=== PATIENT | male | born 1950 | race Caucasian/White ===

== ENCOUNTER 2023-07-08 13:39 | Inpatient (IN) | payer OTHER ==
[~2023-07-08] VITALS: Ht 175.3 cm; Wt 103.0 kg
[2023-07-08] MEDS: METOPROLOL TARTRATE 25 MG TAB PO SCH (00:19)
[2023-07-08 14:17] LABS: Basophils # (auto) 0 10 ^3/uL (0-0.2); Basophils % (auto) 0.5 % (0.0-2.0); Eosinophils # (auto) 0.2 10 ^3/uL (0-0.8); Hemoglobin 16.6 g/dL (13.5-17.5); Lymphocytes # (auto) 2.3 10 ^3/uL (0.4-5.4); Lymphocytes % (auto) 35.5 % (10.0-50.0); Mean Corpuscular Hemoglobin 32.8 pg (28.0-32.0); Mean Corpuscular Volume 96.7 fL (80.0-100.0); Monocytes # (auto) 0.4 10 ^3/uL (0-1.3); Monocytes % (auto) 6.6 % (0.0-12.0); Neutrophils # (auto) 3.6 10 ^3/uL (1.6-8.6); Neutrophils % (auto) 54.4 % (37.0-80.0); Nucleated Red Blood Cells % 0.1 %; Red Blood Cells 5.07 10^6/uL (4.5-5.90); Red Cell Distribution Width 13.8 % (11.8-14.3); White Blood Cell 6.6 10^3/uL (4.4-10.8)
[2023-07-08] MEDS: METOPROLOL TARTRATE 1MG/1ML-5ML VIAL IV SCH (14:35)
[2023-07-08 14:37] LABS: Alanine Aminotransferase 31 U/L (7-40); Alkaline Phosphatase 73 U/L (46-116); Calcium 10.3 mg/dL (8.5-10.1); Carbon Dioxide 30 mmol/L (20-30); Chloride 105 mmol/L (98-107)
[2023-07-08 14:38] LABS: Albumin 4.7 g/dL (3.2-4.8); Anion Gap 6 (5-15); Aspartate Aminotransferase 25 U/L (13-40); BUN/Creatinine Ratio 9.6 (10.0-20.0); Bilirubin, Total 1.1 mg/dL (0.2-1.0); Blood Urea Nitrogen 10 mg/dL (9-23); Glucose 131 mg/dL (74-106); Potassium 3.9 mmol/L (3.5-5.1); Sodium 141 mmol/L (136-145); Total Protein 7.5 g/dL (5.7-8.2)
[2023-07-08] MEDS: METOPROLOL TARTRATE 1MG/1ML-5ML VIAL IV ONE (14:56)
[2023-07-08] MEDS: AZITHROMYCIN 500MG/ 250ML 250 ML IV ONE (16:30)
[2023-07-08] MEDS ORDERED: MORPHINE SULFATE 4 MG/ML SYR/VIAL IV PRN (17:15)
[2023-07-08] MEDS ORDERED: ONDANSETRON HCL 4 MG/2 ML VIAL IV PRN (17:15)
[2023-07-08] MEDS ORDERED: NITROGLYCERIN 0.4 MG SL TAB SL PRN (17:15)
[2023-07-08] MEDS ORDERED: ACETAMINOPHEN 325 MG TAB PO PRN (17:15)
[2023-07-08 17:47] LABS: Urine Bacteria NONE SEEN /hpf (None Seen); Urine Blood Negative /uL (Negative); Urine Clarity Clear (Clear); Urine Color Colorless (Yellow); Urine Protein, UAD Negative (Negative); Urine Specific Gravity 1.008 (1.001-1.035); Urine Urobilinogen Normal (Negative); Urine WBC <1 /hpf (0 - 3); Urine pH 5.5 (5.0-8.0)
[2023-07-08 17:51] LABS: INR 1.25 (0.9-1.15); Prothrombin Time 12.9 sec (9.3-11.8)
[2023-07-08 17:58] LABS: Triglycerides 221 mg/dL (< 150)
[2023-07-08 17:59] LABS: LDL Cholesterol 105 mg/dL (< 100)
[2023-07-08 18:00] LABS: Cholesterol 152 mg/dL (< 200); HDL Cholesterol 37 mg/dL (40-59)
[2023-07-08 18:59] VITALS: PULSE 158; RESP 20; O2SAT 96
[2023-07-08] MEDS: AMIODARONE BOLUS KIT 100 ML IV ONE (19:37)
[2023-07-08 20:00] VITALS: PULSE 103; RESP 19; O2SAT 93
[2023-07-08] MEDS: AMIODARONE 450mg/250ml AE 250 ML IV SCH (21:10)
[2023-07-09] MEDS: ATORVASTATIN 20 MG TAB PO SCH (00:19)
[2023-07-09] MEDS: ENOXAPARIN SOD 100 MG/1 ML SYRINGE SC SCH (00:19)
[2023-07-09] MEDS: AMIODARONE 450mg/250ml AE 250 ML IV SCH (04:31)
[2023-07-09 05:17] LABS: Basophils # (auto) 0.1 10 ^3/uL (0-0.2); Basophils % (auto) 0.9 % (0.0-2.0); Eosinophils # (auto) 0.2 10 ^3/uL (0-0.8); Eosinophils % (auto) 3.2 % (0.0-7.0); Hematocrit 45.7 % (41.0-53.0); Hemoglobin 15.1 g/dL (13.5-17.5); Lymphocytes # (auto) 2.7 10 ^3/uL (0.4-5.4); Lymphocytes % (auto) 36.2 % (10.0-50.0); Mean Corpuscular Hemoglobin 32.3 pg (28.0-32.0); Mean Corpuscular Hgb Conc. 33.1 g/dL (32.0-36.0); Mean Corpuscular Volume 97.7 fL (80.0-100.0); Monocytes # (auto) 0.8 10 ^3/uL (0-1.3); Monocytes % (auto) 11.2 % (0.0-12.0); Neutrophils # (auto) 3.6 10 ^3/uL (1.6-8.6); Neutrophils % (auto) 48.5 % (37.0-80.0); Nucleated Red Blood Cells % 0.3 %; Red Blood Cells 4.67 10^6/uL (4.5-5.90); Red Cell Distribution Width 13.6 % (11.8-14.3); White Blood Cell 7.5 10^3/uL (4.4-10.8)
[2023-07-09 05:37] LABS: Alanine Aminotransferase 25 U/L (7-40); Alkaline Phosphatase 59 U/L (46-116); Anion Gap 8 (5-15); BUN/Creatinine Ratio 10.7 (10.0-20.0); Blood Urea Nitrogen 9 mg/dL (9-23); Calcium 9.1 mg/dL (8.7-10.4); Carbon Dioxide 23 mmol/L (20-30); Chloride 110 mmol/L (98-107); Glucose 95 mg/dL (74-106); Sodium 141 mmol/L (136-145)
[2023-07-09 05:38] LABS: Albumin 3.8 g/dL (3.2-4.8); Aspartate Aminotransferase 20 U/L (13-40); Total Protein 6.3 g/dL (5.7-8.2)
[2023-07-09 07:32] VITALS: O2SAT 94
[2023-07-09] MEDS: ASPirin 81 mg TAB PO SCH (10:31)
[2023-07-09] MEDS: DOCUSATE SOD 100 MG CAP PO SCH (10:31)
[2023-07-09] MEDS: dilTIAZem 25 MG/5 ML VIAL IV ONE ×2 (13:48→17:36)
[2023-07-09] MEDS: AMIODARONE HCL 200 MG TAB PO SCH (13:48)
[2023-07-09] MEDS: RIVAROXABAN 20 MG TAB PO SCH (13:50)
[2023-07-09] MEDS ORDERED: PATIENTS OWN MEDICATION (xarelto 20 MG) PO SCH (17:30)
[2023-07-09 19:30] VITALS: PULSE 118; RESP 17; O2SAT 98
[2023-07-09] MEDS: METOPROLOL TARTRATE 50 MG TAB PO ONE (20:36)
[2023-07-09] MEDS: ENOXAPARIN SOD 100 MG/1 ML SYRINGE SC ONE (22:00)
[2023-07-10] VITALS (24 sets, daily range): BP systolic 93–146; BP diastolic 54–89; PULSE 63–141; RESP 16–20; TEMP 97.4–98.1; O2SAT 90–99
[2023-07-10] MEDS ORDERED: MET50T PO (02:19)
[2023-07-10] MEDS ORDERED: CHOL20007 PO (02:19)
[2023-07-10] MEDS ORDERED: EZET10TA22 PO (02:19)
[2023-07-10] MEDS ORDERED: RIV20T PO (02:19)
[2023-07-10] MEDS ORDERED: OMEG600C2 PO (02:19)
[2023-07-10] MEDS ORDERED: ZINC220C8 PO (02:19)
[2023-07-10] MEDS ORDERED: ASCO500T11 PO (02:19)
[2023-07-10] MEDS: METOPROLOL TARTRATE 25 MG TAB PO SCH (08:49)
[2023-07-10] MEDS: dilTIAZem 25 MG/5 ML VIAL IV ONE ×2 (16:37→19:52)
[2023-07-10] MEDS ORDERED: METOPROLOL TARTRATE 50 MG TAB PO SCH (22:00)
[2023-07-11] VITALS (82 sets, daily range): BP systolic 85–152; BP diastolic 41–87; PULSE 81–144; RESP 10–22; TEMP 97.6–98.6; O2SAT 89–98
[2023-07-11] MEDS: dilTIAZem 125mg/125ml BAG KIT 100 ML IV SCH (02:59)
[2023-07-11] MEDS: DIGOXIN (250MCG/ML) 2 ML AMPULE IV ONE ×2 (13:07→18:45)
[2023-07-11] MEDS: dilTIAZem 120MG ER CAP PO SCH (14:08)
[2023-07-12] VITALS (16 sets, daily range): BP systolic 108–130; BP diastolic 46–85; PULSE 79–121; RESP 14–28; TEMP 98.4–98.9; O2SAT 91–96
[2023-07-12 05:06] LABS: Basophils # (auto) 0 10 ^3/uL (0-0.2); Basophils % (auto) 0.4 % (0.0-2.0); Eosinophils # (auto) 0.2 10 ^3/uL (0-0.8); Eosinophils % (auto) 2.3 % (0.0-7.0); Hematocrit 49.1 % (41.0-53.0); Hemoglobin 16.3 g/dL (13.5-17.5); Lymphocytes # (auto) 1.9 10 ^3/uL (0.4-5.4); Lymphocytes % (auto) 21.8 % (10.0-50.0); Mean Corpuscular Hgb Conc. 33.1 g/dL (32.0-36.0); Mean Corpuscular Volume 96.6 fL (80.0-100.0); Monocytes % (auto) 11.5 % (0.0-12.0); Neutrophils # (auto) 5.5 10 ^3/uL (1.6-8.6); Nucleated Red Blood Cells % 0.1 %; Red Blood Cells 5.09 10^6/uL (4.5-5.90); Red Cell Distribution Width 13.3 % (11.8-14.3); White Blood Cell 8.6 10^3/uL (4.4-10.8)
[2023-07-12 05:12] LABS: Anion Gap 7 (5-15); Carbon Dioxide 25 mmol/L (20-30); Chloride 110 mmol/L (98-107); Sodium 142 mmol/L (136-145)
[2023-07-12 05:13] LABS: Calcium 9.2 mg/dL (8.5-10.1)
[2023-07-12 05:18] LABS: BUN/Creatinine Ratio 16.7 (10.0-20.0); Blood Urea Nitrogen 15 mg/dL (9-23); Glucose 107 mg/dL (74-106)
[2023-07-12] MEDS: DIGOXIN 0.125 MG TAB PO SCH (08:04)
[2023-07-12] MEDS: RIVAROXABAN 20 MG TAB PO SCH (10:01)
[2023-07-12] MEDS ORDERED: DIGO0.12 PO (14:13)
[2023-07-12] MEDS ORDERED: AMIO200T33 PO (14:14)
[2023-07-12] MEDS ORDERED: DILT-29 PO (14:14)
[2023-07-12] MEDS ORDERED: RIVAROXABAN 20 MG TAB PO SCH (18:00)
== END 2023-07-12 15:50 | disposition home or self-care (01) | DRG 308 ==
LOC: ER 13:39 → TELE 17:18 → TELE-EAST 07-09 23:52 → DOU IN ICU 07-10 19:40
PROVIDERS: ADMIT Nurse Practitioner Family; ATTEND Internal Medicine
DX: I48.0 Paroxysmal atrial fibrillation (principal); I50.23 Acute on chronic systolic (congestive) heart failure; J44.1 Chronic obstructive pulmonary disease with (acute) exacerbation; I11.0 Hypertensive heart disease with heart failure; E78.5 Hyperlipidemia, unspecified; R07.89 Other chest pain; E66.01 Morbid (severe) obesity due to excess calories; Z68.33 Body mass index [BMI] 33.0-33.9, adult; I42.9 Cardiomyopathy, unspecified; Z79.01 Long term (current) use of anticoagulants; Z82.49 Family history of ischemic heart disease and other diseases of the circulatory system; Z87.891 Personal history of nicotine dependence; Z91.148 Patient's other noncompliance with medication regimen for other reason; Z91.199 Patient's noncompliance with other medical treatment and regimen due to unspecified reason
CPT/HCPCS: 36415; 71045; 80048; 80053; 80061; 81001; 83735; 84484; 85025; 85610; 87081; 93005; 93306; 96365; 99291; G0378